=== PATIENT | female | born 1990 | race Caucasian/White ===

== ENCOUNTER 2017-06-16 23:07 | Emergency (ER) | payer OTHER | END 2017-06-17 00:14 | disposition home or self-care (01) | LOC: E/R 23:07 | DX: M79.644 Pain in right finger(s) (principal) | CPT/HCPCS: 73140; 99283-25 ==

== ENCOUNTER 2018-02-06 18:53 | Inpatient (IN) | payer BC ==
[2018-02-06 20:38] LABS: ADD UMIC YES; UR ASCORBIC ACID NEGATIVE (NEGATIVE); UR BACTERIA FEW /HPF (NONE SEEN); UR BILIRUBIN (Dip) NEGATIVE (NEGATIVE); UR BLOOD (Dip) NEGATIVE (NEGATIVE); UR CLARITY SLIGHTLY CLOUDY (CLEAR); UR COLOR YELLOW (YELLOW); UR GLUCOSE (Dip) NEGATIVE (NEGATIVE); UR KETONES (Dip) 1+ mg/dL (NEGATIVE); UR LEUKOCYTE ESTERASE (Dip) 2+ Leu/ul (NEGATIVE); UR MUCUS FEW /HPF (NONE SEEN); UR NITRITE (Dip) NEGATIVE (NEGATIVE); UR RBC 1 /HPF (0-5); UR SPECIFIC GRAVITY (Dip) 1.016 (1.003-1.030); UR SQUAMOUS EPITHELIAL CELL FEW /HPF (FEW); UR TOTAL PROTEIN (Dip) NEGATIVE (NEGATIVE); UR UROBILINOGEN (Dip) NEGATIVE (NEGATIVE); UR WBC 2 /HPF (0-5)
[2018-02-06 20:46] LABS: ADD MAN DIFF? NO
[2018-02-06 20:47] LABS: BASOPHILS % 0.2 % (0.0-2.0); EOSINOPHILS % 0.1 % (0.0-7.0); HEMATOCRIT 31.6 % (37.0-47.0); HEMOGLOBIN 10.3 g/dl (12.0-16.0); LYMPHOCYTES # 1.9 10^3/ul (0.8-2.9); LYMPHOCYTES % 16.9 % (15.0-51.0); MEAN CORPUSCULAR HEMOGLOBIN 26.6 pg (29.0-33.0); MEAN CORPUSCULAR HGB CONC 32.6 g/dl (32.0-37.0); MEAN CORPUSCULAR VOLUME 81.7 fl (82.0-101.0); MEAN PLATELET VOLUME 10.6 fl (7.4-10.4); MONOCYTE # 0.8 10^3/ul (0.3-0.9); NEUTROPHIL # 8.5 10^3/ul (1.6-7.5); NEUTROPHILS % 75.3 % (39.0-77.0); PLATELET COUNT 248 10^3/UL (140-415); RED BLOOD COUNT 3.87 10^6/ul (4.20-5.40); RED CELL DISTRIBUTION WIDTH 14.3 % (11.5-14.5)
[2018-02-06 20:47] LABS: WHITE BLOOD COUNT 11.3 10^3/ul (4.8-10.8)
[2018-02-07] MEDS ORDERED: AL HYDROX/MG HYDROX/SIMETH 30 ML CUP PO (01:00)
[2018-02-07] MEDS ORDERED: ONDANSETRON 4 MG INJ IV (01:00)
[2018-02-07] MEDS: LACTATED RINGER'S 1,000 ML IV ×3 (02:50→19:57)
[2018-02-07] MEDS: BETAMET NA PHOS/AC(6 MG/ML) 5ML INJ IM (02:50)
[2018-02-07] MEDS: ACETAMINOPHEN 325 MG TAB PO (03:06)
[2018-02-07] MEDS: MAGNESIUM SULFATE 4 GM/100 ML 100 ML IV (03:09)
[2018-02-07] MEDS: MAGNESIUM SULFATE 20 GM/500 ML 500 ML IV ×2 (03:41→14:45)
[2018-02-07 06:32] LABS: ADD MAN DIFF? NO
[2018-02-07 06:40] LABS: WHITE BLOOD COUNT 9.1 10^3/ul (4.8-10.8)
[2018-02-07 06:40] LABS: BASOPHILS % 0.1 % (0.0-2.0); EOSINOPHILS % 0.1 % (0.0-7.0); HEMATOCRIT 31.2 % (37.0-47.0); LYMPHOCYTES # 1.3 10^3/ul (0.8-2.9); LYMPHOCYTES % 14.4 % (15.0-51.0); MEAN CORPUSCULAR HEMOGLOBIN 26.7 pg (29.0-33.0); MEAN CORPUSCULAR HGB CONC 32.1 g/dl (32.0-37.0); MEAN CORPUSCULAR VOLUME 83.2 fl (82.0-101.0); MEAN PLATELET VOLUME 10.8 fl (7.4-10.4); MONOCYTE # 0.3 10^3/ul (0.3-0.9); NEUTROPHIL # 7.4 10^3/ul (1.6-7.5); NEUTROPHILS % 81.5 % (39.0-77.0); PLATELET COUNT 232 10^3/UL (140-415); RED BLOOD COUNT 3.75 10^6/ul (4.20-5.40); RED CELL DISTRIBUTION WIDTH 14.6 % (11.5-14.5)
[2018-02-07 06:55] LABS: INR 0.93; PROTIME 12.5 Sec (11.9-14.9)
[2018-02-07 06:56] LABS: PARTIAL THROMBOPLASTIN TIME 30.3 Sec (25.0-35.0)
[2018-02-07 07:02] LABS: MAGNESIUM 4.2 mg/dl (1.7-2.5)
[2018-02-07] MEDS: PRENATAL VITAMIN PO (10:06)
[2018-02-07 12:57] LABS: MAGNESIUM 5.1 mg/dl (1.7-2.5)
[2018-02-07 16:10] LABS: RAPID PLASMA REAGIN NONREACTIVE (NR)
[2018-02-08] MEDS: MAGNESIUM SULFATE 20 GM/500 ML 500 ML IV (01:10)
[2018-02-08 01:28] LABS: MAGNESIUM 4.9 mg/dl (1.7-2.5)
[2018-02-08] MEDS: BETAMET NA PHOS/AC(6 MG/ML) 5ML INJ IM (02:52)
[2018-02-08 07:34] LABS: MAGNESIUM 3.8 mg/dl (1.7-2.5)
== END 2018-02-08 10:50 | disposition home or self-care (01) | DRG 780 ==
LOC: OBT 18:53 → L-D 18:57 → OBT 02-07 00:25 → L-D 02-07 00:25
DX: O47.03 False labor before 37 completed weeks of gestation, third trimester (principal); O10.913 Unspecified pre-existing hypertension complicating pregnancy, third trimester; Z3A.33 33 weeks gestation of pregnancy
CPT/HCPCS: 36415; 76815; 76817; 76818; 81001; 83735; 85025; 85460; 85610; 85730; 86592; 86850; 86900; 86901